=== PATIENT | male | born 1960 | race African-American/Black ===

== ENCOUNTER 2020-01-01 22:02 | Emergency (ER) | payer SELFPAY ==
--- OUTSIDE RECORDS SUMMARY | 2020-01-01 22:05 | XMS REPORT ---
:1960 Author Organization [facility] Address [address] [place] [address] [address] [place] [address] Care Team Providers Name Role Phone Unavailable Unavailable Unavailable Problems This patient has no known problems. Allergies, Adverse Reactions, Alerts This patient has no known allergies or adverse reactions. Medications This patient has no known medications.
[2020-01-01] MEDS ORDERED: FAMOTIDINE 20 MG/2 ML VIAL IV ONE (22:53)
[2020-01-01] MEDS ORDERED: MEPERIDINE HCL 25 MG/0.5 ML ONE (22:53)
[2020-01-01] MEDS ORDERED: MAGNE/ALUM HYDROXD 30 ML UCUP ONE (22:53)
[2020-01-01] MEDS ORDERED: LIDOCAINE VISCOUS 2% SOLN 15 ML UDC ONE (22:53)
[2020-01-01 23:18] LABS: Absolute Lymphocytes (CBC) 2.5 K/uL (0.7-4.9); Basophils % 0.4 % (0-1.3); Hematocrit 42.6 % (39.6-49.0); Lymphocytes % 37.8 % (15.3-44.8); MPV 10.5 fL (7.6-11.3)
[2020-01-01 23:32] LABS: Albumin 3.5 g/dL (3.4-5.0); Bilirubin Direct 0.2 mg/dL (0-0.2); Bilirubin Total 0.5 mg/dL (0.2-1.0); Potassium 3.8 mmol/L (3.5-5.1); Protein, Total 7.4 g/dL (6.4-8.2); Troponin (Emerg Dept Use Only) 0.03 ng/mL (0.0-0.045)
--- NOTE | 2020-01-02 01:02 | ER ---
Nurse's Notes [facility] Name: Rashid Judge Age: 59 yrs Sex: Male : 1960 Arrival Date: 01/01/2020 Time: 22:05 Bed 4 Private MD: Diagnosis: Acute pancreatitis, unspecified;Gastritis, unspecified Presentation: 12/31 22:24 Chief complaint: Patient states: he is having epigastric pain for the last 4 to 5 days bb the pain is getting worse and comes in waves denies vomiting or diarrhea, denies fever. Coronavirus screen: The patient has NOT traveled to [place] in the past 14 days. Proceed with normal triage procedures. Ebola Screen: No symptoms or risks identified at this time. Initial Sepsis Screen: Does the patient meet any 2 criteria? No. Patient's initial sepsis screen is negative. Does the patient have a suspected source of infection? No. Patient's initial sepsis screen is negative. Risk Assessment: Do you want to hurt yourself or someone else? Patient reports no desire to harm self or others. Onset of symptoms was December 2019. 22:24 Method Of Arrival: Ambulatory bb 22:24 Acuity: JULIETTE 3 bb Historical: - Allergies: 22:31 No Known Allergies; bb - Home Meds: 22:31 lisinopril 30 mg Oral tab 1 tab once daily [Active]; glipizide 5 mg Oral tr24 1 tab bb once daily [Active]; - PMHx: 22:31 Hypertension; Diabetes - NIDDM; bb - PSHx: 22:31 None; bb - Immunization history:: Adult Immunizations up to date. - Social history:: Smoking status: Patient reports the use of cigarette tobacco products, smokes one-half pack cigarettes per day, Patient uses alcohol, occasionally. - Family history:: not pertinent. - Hospitalizations: : No recent hospitalization is reported. Screenin:45 Abuse screen: Denies threats or abuse. Denies injuries from another. Nutritional rr5 screening: No deficits noted. Tuberculosis screening: No symptoms or risk factors identified. Fall Risk IV access (20 points). Total Aguila Fall Scale indicates No Risk (0-24 pts). Assessment: 22:40 General: Appears in no apparent distress. uncomfortable, Behavior is calm, cooperative, rr5 appropriate for age. 22:40 Pain: Complains of pain in epigastric area Pain does not radiate. Pain currently is 8 rr5 out of 10 on a pain scale. Quality of pain is described as aching, Pain began gradually, Is intermittent. Neuro: Level of Consciousness is awake, alert, obeys commands, Oriented to person, place, time, situation, Appropriate for age. Cardiovascular: Capillary refill < 3 seconds Patient's skin is warm and dry. Respiratory: Airway is patent Respiratory effort is even, unlabored, Respiratory pattern is regular, symmetrical. GI: Abdomen is round non-distended, Bowel sounds present X 4 quads. Abd is non tender X 4 quads Reports upper abdominal pain, Patient currently denies nausea, vomiting. : No signs and/or symptoms were reported regarding the genitourinary system. EENT: No signs and/or symptoms were reported regarding the EENT system. Derm: Skin is intact, is healthy with good turgor, Skin temperature is warm. Musculoskeletal: Circulation, motion, and sensation intact. Capillary refill < 3 seconds. 23:30 Reassessment: Patient appears in no apparent distress at this time. Patient is alert, rr5 oriented x 3, equal unlabored respirations, skin warm/dry/pink. awaiting for results. Patient states feeling better. Patient states symptoms have improved. 01/01 00:15 Reassessment: Patient appears in no apparent distress at this time. Patient and/or rr5 family updated on plan of care and expected duration. Pain level reassessed. Patient is alert, oriented x 3, equal unlabored respirations, skin warm/dry/pink. Patient states feeling better. 01:30 Reassessment: Patient appears in no apparent distress at this time. Patient is alert, rr5 oriented x 3, equal unlabored respirations, skin warm/dry/pink. discharge instruction given and explained without complaints made. Patient states feeling better. Patient states symptoms have improved. Vital Signs: 12/31 22:24 BP 182 / 105; Pulse 71; Resp 16 S; Temp 98(O); Pulse Ox 98% on R/A; Weight 76.2 kg (R); bb Height 5 ft. 7 in. (170.18 cm) (R); Pain 8/10; 23:35 BP 174 / 110; Pulse 71; Resp 18; Pulse Ox 99% ; Pain 2/10; rr5 01/01 00:49 BP 174 / 112; Pulse 73; Resp 19; Pulse Ox 99% on R/A; rr5 01:25 BP 162 / 95; Pulse 70; Resp 18; Pulse Ox 99% on R/A; rr5 12/31 22:24 Body Mass Index 26.31 (76.20 kg, 170.18 cm) bb ED Course: 12/31 22:05 Patient arrived in ED. ds1 22:30 Triage completed. bb 22:31 Arm band placed on Patient placed in an exam room, on a stretcher, on pulse oximetry. bb Family accompanied patient. 22:33 Wili Webb MD is Attending Physician. rn 22:43 Ric Pineda RN is Primary Nurse. rr5 22:45 Patient has correct armband on for positive identification. Placed in gown. Bed in low rr5 position. Call light in reach. Pulse ox on. NIBP on. 22:46 Radiology exam delayed due to lab results not completed at this time. (BUN/Creatinine). vm2 22:50 EKG done, by ED staff, reviewed by Wili Webb MD. rr5 23:05 Inserted saline lock: 20 gauge in left antecubital area, using aseptic technique. Blood rr5 collected. 01/01 00:12 CT Abd/Pelvis - IV Contrast Only In Process Unspecified. EDMS 01:01 Lennox Franklin MD is Referral Physician. rn 01:30 No provider procedures requiring assistance completed. IV discontinued, intact, rr5 bleeding controlled, No redness/swelling at site. Pressure dressing applied. Administered Medications: 12/31 23:00 Drug: GI Cocktail without - (Maalox Suspension 30 ml, Lidocaine Liquid 2 % 15 rr5 ml) Route: PO; 01/01 00:00 Follow up: Response: No adverse reaction rr5 12/31 23:05 Drug: Pepcid 20 mg Route: IVP; Site: left antecubital; rr5 01/01 00:00 Follow up: Response: No adverse reaction rr5 12/31 23:07 Drug: Demerol 25 mg {Note: rass 0.} Route: IVP; Site: left antecubital; rr5 01/01 00:05 Follow up: Response: No adverse reaction; Marked relief of symptoms; Pain is decreased; rr5 RASS: Alert and Calm (0) Outcome: 01:01 Discharge ordered by . rn 01:30 Discharged to home ambulatory, with family. rr5 01:30 Condition: stable 01:30 Discharge instructions given to patient, Instructed on discharge instructions, follow up and referral plans. medication usage, Demonstrated understanding of instructions, follow-up care, medications, Prescriptions given X 3. 01:33 Patient left the ED. mt Signatures: Dispatcher [employer] EDMO Evon Mccullough ds1 Raysa Del Real RN RN Wili Mcintosh MD MD rn McGuire, Victoria Charmaine Gannon sd Ric Pineda RN RN rr5
--- NOTE | 2020-01-02 01:02 | EDPHYS ---
Physician Documentation [facility] Name: Rashid Judge Age: 59 yrs Sex: Male : 1960 Arrival Date: 01/01/2020 Time: 22:05 Bed 4 Private MD: ED Physician Wili Webb HPI: 01/01 00:18 This 59 yrs old Black Male presents to ER via Ambulatory with complaints of Abdominal rn Pain. 00:18 The patient presents with abdominal pain. Onset: The symptoms/episode began/occurred 4 rn day(s) ago. The symptoms do not radiate. Associated signs and symptoms: none. Pertinent negatives: nausea and vomiting, anorexia, blood in stools, fever, shortness of breath, vomiting blood. The symptoms are described as achy, crampy. Modifying factors: The symptoms are alleviated by nothing, the symptoms are aggravated by food. Severity of pain: At its worst the pain was moderate in the emergency department the pain is unchanged. The patient has not experienced similar symptoms in the past. The patient has not recently seen a physician. Reports upper abd pain, began 4 days ago, intermittent, worse today, worse with food, epigastric region. No blood in stool. Reports seen recently by clinic and told had acid problems, did not fill medication.. Historical: - Allergies: 12/31 22:31 No Known Allergies; bb - Home Meds: 22:31 lisinopril 30 mg Oral tab 1 tab once daily [Active]; glipizide 5 mg Oral tr24 1 tab bb once daily [Active]; - PMHx: 22:31 Hypertension; Diabetes - NIDDM; bb - PSHx: 22:31 None; bb - Immunization history:: Adult Immunizations up to date. - Social history:: Smoking status: Patient reports the use of cigarette tobacco products, smokes one-half pack cigarettes per day, Patient uses alcohol, occasionally. - Family history:: not pertinent. - Hospitalizations: : No recent hospitalization is reported. ROS: 01/01 00:18 Constitutional: Negative for fever, chills, and weight loss, Eyes: Negative for injury, rn pain, redness, and discharge, Neck: Negative for injury, pain, and swelling, Cardiovascular: Negative for chest pain, palpitations, and edema, Respiratory: Negative for shortness of breath, cough, wheezing, and pleuritic chest pain, Abdomen/GI: Negative for nausea, vomiting, diarrhea, and constipation, Back: Negative for injury and pain, MS/Extremity: Negative for injury and deformity, Skin: Negative for injury, rash, and discoloration, Neuro: Negative for headache, weakness, numbness, tingling, and seizure. Exam: 00:18 Constitutional: This is a well developed, well nourished patient who is awake, alert, rn appears in pain Head/Face: Normocephalic, atraumatic. Eyes: Pupils equal round and reactive to light, extra-ocular motions intact. Lids and lashes normal. Conjunctiva and sclera are non-icteric and not injected. Cornea within normal limits. Periorbital areas with no swelling, redness, or edema. Cardiovascular: Regular rate and rhythm. No pulse deficits. Respiratory: Lungs have equal breath sounds bilaterally, clear to auscultation. No increased work of breathing, no retractions or nasal flaring. Abdomen/GI: soft, + epigastric tenderness, no rebound, neg cardona MS/ Extremity: Pulses equal, no cyanosis. Neurovascular intact. Full, normal range of motion. Equal circumference. Neuro: Awake and alert, GCS 15, oriented to person, place, time, and situation. Cranial nerves II-XII grossly intact. Motor strength 5/5 in all extremities. Sensory grossly intact. Cerebellar exam normal. Normal gait. Vital Signs: 12/31 22:24 BP 182 / 105; Pulse 71; Resp 16 S; Temp 98(O); Pulse Ox 98% on R/A; Weight 76.2 kg (R); bb Height 5 ft. 7 in. (170.18 cm) (R); Pain 8/10; 23:35 BP 174 / 110; Pulse 71; Resp 18; Pulse Ox 99% ; Pain 2/10; rr5 01/01 00:49 BP 174 / 112; Pulse 73; Resp 19; Pulse Ox 99% on R/A; rr5 01:25 BP 162 / 95; Pulse 70; Resp 18; Pulse Ox 99% on R/A; rr5 12/31 22:24 Body Mass Index 26.31 (76.20 kg, 170.18 cm) bb MDM: 12/31 22:34 Patient medically screened. rn 01/01 00:58 Differential diagnosis: cholecystitis, Cholelithiasis, gastritis, gastroesophageal rn reflux disease, Hepatitis, non-specific abd pain, pancreatitis, Peptic Ulcer Disease. Data reviewed: vital signs, nurses notes, lab test result(s), EKG, radiologic studies, CT scan, and as a result, I will admit patient. Counseling: I had a detailed discussion with the patient and/or guardian regarding: the historical points, exam findings, and any diagnostic results supporting the discharge/admit diagnosis, lab results, radiology results, the need for further work-up and treatment in the hospital. Response to treatment: the patient's symptoms have markedly improved after treatment, and as a result, I will admit patient. Refusal of service: The patient/guardian displays adequate decision making capability and despite a detailed discussion of alternatives, benefits, risks, and consequences refuses: Admission to the hospital for further work-up and treatment. ED course: Pt states absolutely cannot stay in hospital. Recommend inpatient care given first episode of pancreatitis, and gastritis, although mild, patient states cant afford not to work. Prefers to go home and states will return if worsens. Recommend liquid diet and will dc home with pain meds. . 12/31 22:43 Order name: Basic Metabolic Panel rn 12/31 22:43 Order name: CBC with Diff; Complete Time: 00:45 rn 12/31 22:43 Order name: Creatinine for Radiology; Complete Time: 00:45 rn 12/31 22:43 Order name: Hepatic Function; Complete Time: 00:45 rn 12/31 22:43 Order name: Lipase; Complete Time: 00:45 rn 12/31 22:43 Order name: Troponin (emerg Dept Use Only); Complete Time: 00:45 rn 12/31 22:43 Order name: IV Saline Lock; Complete Time: 23:13 rn 12/31 22:43 Order name: Labs collected and sent; Complete Time: 23:13 rn 12/31 22:43 Order name: CT Abd/Pelvis - IV Contrast Only rn 12/31 22:44 Order name: Basic Metabolic Panel; Complete Time: 00:45 EDMS 12/31 22:43 Order name: EKG - Nurse/Tech; Complete Time: 23:13 rn Administered Medications: 12/31 23:00 Drug: GI Cocktail without - (Maalox Suspension 30 ml, Lidocaine Liquid 2 % 15 rr5 ml) Route: PO; 01/01 00:00 Follow up: Response: No adverse reaction rr5 12/31 23:05 Drug: Pepcid 20 mg Route: IVP; Site: left antecubital; rr5 01/01 00:00 Follow up: Response: No adverse reaction rr5 12/31 23:07 Drug: Demerol 25 mg {Note: rass 0.} Route: IVP; Site: left antecubital; rr5 01/01 00:05 Follow up: Response: No adverse reaction; Marked relief of symptoms; Pain is decreased; rr5 RASS: Alert and Calm (0) Disposition: 01/02/20 01:01 Discharged to Home. Impression: Acute pancreatitis, unspecified, Gastritis, unspecified. - Condition is Stable. - Discharge Instructions: Gastritis, Adult, Acute Pancreatitis. - Prescriptions for Zofran ODT 4 mg Oral tablet,disintegrating - place 1 tablet by TRANSLINGUAL route every 8 hours As needed; 20 tablet. Protonix 40 mg Oral Tablet - take 1 tablet by ORAL route once daily; 30 tablet. Tylenol- Codeine #3 300-30 mg Oral Tablet - take 1 tablet by ORAL route every 6 hours As needed; 20 tablet. - Medication Reconciliation Form, Thank You Letter, Antibiotic Education, Prescription Opioid Use form. - Follow up: Lennox Franklin MD; When: 2 - 3 days; Reason: Recheck today's complaints, Re-evaluation by your physician. - Problem is new. - Symptoms have improved. Signatures: Dispatcher [employer] EDRaysa Tsang RN RN bb Nieto, Roman, MD MD rn Thompson, Moriah mt Roque, Raymond, RN RN rr5 Corrections: (The following items were deleted from the chart) 01:33 01:01 01/02/2020 01:01 Discharged to Home. Impression: Acute pancreatitis, unspecified; mt Gastritis, unspecified. Condition is Stable. Forms are Medication Reconciliation Form, Thank You Letter, Antibiotic Education, Prescription Opioid Use. Follow up: Lennox Franklin; When: 2 - 3 days; Reason: Recheck today's complaints, Re-evaluation by your physician. Problem is new. Symptoms have improved. rn
[2020-01-02 03:55] VITALS: TEMP 98
[2020-01-02 03:57] VITALS: O2SAT 99
[2020-01-02 03:58] VITALS: BP 174/112
--- NOTE | 2020-01-02 11:42 | RAD REPORT ---
EXAM DESCRIPTION: CT - Abdomen Pelvis W Contrast - 01/02/2020 5:26 am CLINICAL HISTORY: 59 years Male ABD PAIN COMPARISON: None. TECHNIQUE: Contiguous axial images obtained through the abdomen and pelvis following IV contrast. Re formatted images obtained. This exam was performed according to our department optimization program which includes automated exp osure control, adjustment of the mA and/or kv according to patient size and/or use of iterative recon struction technique. FINDINGS: Mild atelectasis/scarring in the lower lungs. The liver appears unremarkable. The spleen appears unremarkable. There is mild stranding in the fatty tissues around the pancreas consistent with pancreatitis. There is normal pancreatic enhancement and the splenic and portal veins are patent. No adrenal masses. There is a left renal cyst. No hydronephrosis. There is wall thickening in the gallbladder which is nonspecific. If there is clinical concern for the possibility of cholecystitis, sonography or nuclear medicine imaging could be obtained to better evaluate. No aneurysmal dilatation of the aorta. There is wall thickening in the distal stomach and proximal duodenum likely from the adjacent changes from pancreatitis. Clinical correlation is also recommended to exclude gastritis or ulcer disease. N o bowel obstruction. There is an appendicolith within the appendix. No evidence for appendicitis. No significant free pelvic fluid. Tiny fat-containing umbilical hernia. Small fat-containing inguinal hernias. Degenerative changes in the spine. There are bridging osteophytes at the SI joints. IMPRESSION: There are findings consistent with pancreatitis. Clinical and laboratory correlation is also recommended. There is wall thickening in the distal stomach and proximal duodenum likely from the adjacent pancrea titis. Clinical correlation is also recommended to exclude gastritis or ulcer disease. There is wall thickening in the gallbladder which is nonspecific but may be secondary to changes from pancreatitis. If there is clinical concern for the possibility of cholecystitis, sonography or nu clear medicine imaging could be obtained to better evaluate. Other findings as above. Electronically signed by: Jasen Vaz MD 01/02/2020 12:25 AM [facility]AK[facility] Due to temporary technical issues with the PACS/Fluency reporting system, reports are being signed by the in house radiologist as a courtesy to ensure prompt reporting. The interpreting radiologist is f ully responsible for the content of the report.
== END 2020-01-02 01:33 | disposition home or self-care (01) ==
LOC: ER 22:02
DX: K85.90 Acute pancreatitis without necrosis or infection, unspecified (principal); K29.70 Gastritis, unspecified, without bleeding; F17.210 Nicotine dependence, cigarettes, uncomplicated; I10 Essential (primary) hypertension; E11.9 Type 2 diabetes mellitus without complications
CPT/HCPCS: 36415; 74177; 80048; 80076; 83690; 84484; 85025; 96374; 96375; 99284; J2175; Q9967

== ENCOUNTER 2021-06-26 06:47 | Day surgery (SDC) | payer OTHER ==
[2021-06-26] MEDS ORDERED: NA CHLORIDE 0.9% 500 ML ONE ×2 (07:52→08:42)
[2021-06-26] MEDS ORDERED: Phenylephrine HCl 10 MG/ML 1 ML VIAL ONE ×2 (07:55→08:09)
[2021-06-26] MEDS ORDERED: propofoL 200 MG/20 ML VIAL IV ONE ×2 (08:09)
[2021-06-26] MEDS ORDERED: LIDOCAINE 4% TOP SOLUTION ONE (08:10)
[2021-06-26] MEDS ORDERED: GLYCOPYRROLATE 0.2 MG/ML SYR ONE (08:10)
[2021-06-26] MEDS ORDERED: LIDOCAINE 1% MPF 30 ML VIAL ONE ×2 (08:10→08:16)
[2021-06-26] MEDS ORDERED: LIDOCAINE VISCOUS 2% SOLN 15 ML UDC ONE (08:16)
--- NOTE | 2021-06-26 08:50 | P.OP ---
Date of Service: 06/26/21 (Bronchoscopy with left upper lobe and a bronchial biopsies and BAL and why a brushing) Findings and Operative Technique Patient is 60 years of age evaluated in my clinic for a large left upper lobe lung mass presumed another primary cancer he has already been treated for prostatic cancer After obtaining informed consent from the patient he was premedicated by anesthesia Findings normal right-sided lung anatomy in normal oxana the left upper lobe bronchus was most 70% occluded multiple biopsies were done for S of the anatomy in the left lung looked fairly normal patient tolerated the procedure very well did not experience any hemodynamic abnormalities or hypoxemia
[2021-06-26 09:25] VITALS: TEMP 96.8; O2SAT 100
[2021-06-26 09:29] VITALS: BP 103/74
--- NOTE | 2021-06-26 10:02 | RAD REPORT ---
EXAM DESCRIPTION: RAD - FLUORO-GUIDE FOR BRONCH UPT1HR - 06/26/2021 9:53 am CLINICAL HISTORY: LEFT LUNG COMPARISON: No comparisons FINDINGS: Fluoroscopy time 2 minutes and 32 seconds.
--- NOTE | 2021-06-26 10:21 | RAD REPORT ---
EXAM DESCRIPTION: RAD - Chest Single View - 06/26/2021 10:08 am CLINICAL HISTORY: R/O PNEUMOTHORAX AFTER BRONCHOSCOPY Chest pain. COMPARISON: FLUORO-GUIDE FOR BRONCH UPT1HR dated 06/26/2021 FINDINGS: Portable technique limits examination quality. Exam was performed at expiration resulting in vascular crowding. No measurable pneumothorax is seen. Heart size is upper limit of normal. IMPRESSION: No postprocedure pneumothorax seen.
== END 2021-06-26 10:50 | disposition home or self-care (01) ==
LOC: OR 06:47
PROVIDERS: ATTEND Internal Medicine Sleep Medicine
PROC: 0BD88ZX Extraction of Left Upper Lobe Bronchus, Via Natural or Artificial Opening Endoscopic, Diagnostic (ICD-10-PCS; 2021-06-26)
PROC: 0B9G8ZX Drainage of Left Upper Lung Lobe, Via Natural or Artificial Opening Endoscopic, Diagnostic (ICD-10-PCS; principal; 2021-06-26 08:00)
DX: R91.8 Other nonspecific abnormal finding of lung field (principal); F17.210 Nicotine dependence, cigarettes, uncomplicated; I10 Essential (primary) hypertension; Z85.46 Personal history of malignant neoplasm of prostate; E11.9 Type 2 diabetes mellitus without complications; Z20.822 Contact with and (suspected) exposure to COVID-19
CPT/HCPCS: 31624; 31625; 88108 ×2; 82947; 88305 ×2; 87015; 87206; 87116; 87102; 71045; 76000; U0002; J2704 ×2; J2370; J7040

== ENCOUNTER 2021-08-29 17:31 | Emergency (ER) | payer OTHER ==
[2021-08-29] MEDS ORDERED: PROMETHAZINE INJ 25 MG/ML AMP ONE (18:23)
[2021-08-29] MEDS ORDERED: NA CHLORIDE 0.9% 1,000 ML ONE (18:23)
[2021-08-29 18:24] LABS: Urine Blood Negative (Negative); Urine Glucose 2+ (Negative); Urine Protein Negative (Negative)
[2021-08-29 18:31] LABS: BUN Blood Urea Nitrogen 19 mg/dL (7-18); Bicarbonate 26 mmol/L (21-32); Glucose Level 371 mg/dL (74-106); Potassium 4.8 mmol/L (3.5-5.1); Sodium Level 137 mmol/L (136-145)
[2021-08-29 18:40] LABS: Absolute Lymphocytes (CBC) 1.6 K/uL (0.7-4.9); Basophils % 0.2 % (0-1.3); Hematocrit 34.7 % (39.6-49.0); Lymphocytes % 13.6 % (15.3-44.8); MPV 8.7 fL (7.6-11.3); RBC Red Blood Cell Count 4.03 M/uL (4.33-5.43)
[2021-08-29 19:58] LABS: Blood Morphology Comment NOT SEEN (NOT SEEN); Platelet Estimate ADEQ
--- NOTE | 2021-08-29 20:43 | ER ---
Nurse's Notes [facility] Name: Rashid Judge Age: 61 yrs Sex: Male : 1960 Arrival Date: 08/29/2021 Time: 17:34 Bed 18 Private MD: Diagnosis: Nausea with vomiting, unspecified;Hyperglycemia, unspecified Presentation: 08/29 17:42 Chief complaint: Patient states: Blood sugar 449 earlier today. Nausea and diarrhea for ll1 1 week. Stage 4 prostate CA, finished radiation. 3rd round of chemo scheduled for next week. Coronavirus screen: Vaccine status: Patient reports receiving the 2nd dose of the covid vaccine. Client denies travel out of the [place] in the last 14 days. At this time, the client does not indicate any symptoms associated with coronavirus-19. Ebola Screen: Patient denies travel to an Ebola-affected area in the 21 days before illness onset. Initial Sepsis Screen: Does the patient meet any 2 criteria? HR > 90 bpm. No. Patient's initial sepsis screen is negative. Does the patient have a suspected source of infection? No. Patient's initial sepsis screen is negative. Risk Assessment: Do you want to hurt yourself or someone else? Patient reports no desire to harm self or others. Onset of symptoms was August 22, 2021. 17:42 Method Of Arrival: Ambulatory ll1 17:42 Acuity: JULIETTE 3 ll1 Historical: - Allergies: 17:44 No Known Allergies; ll1 - PMHx: 17:44 Diabetes - NIDDM; Hypertension; prostate CA; ll1 - Immunization history:: Client reports receiving the 2nd dose of the Covid vaccine. - Social history:: Smoking status: Patient reports the use of cigarette tobacco products, 1/5 PPD. Screenin:48 Abuse screen: Denies threats or abuse. Tuberculosis screening: No symptoms or risk ll1 factors identified. 17:50 Nutritional screening: Has had N/V for 3 or more days. Fall Risk Secondary diagnosis jw6 (15 points) prostate cancer. IV access (20 points). Assessment: 17:50 General: Appears uncomfortable, Behavior is cooperative. Pain: Denies pain. Neuro: No jw6 deficits noted. Cardiovascular: No deficits noted. Respiratory: No deficits noted. GI: No deficits noted. : No deficits noted. :. EENT: No deficits noted. Derm: No deficits noted. Musculoskeletal: No deficits noted. 20:00 Reassessment: Patient appears in no apparent distress at this time. Eating sandwich cc4 with no n/v; watching TV; reports being "hungry"; IV NS infusion complete to saline lock right AC. General: Appears in no apparent distress. Behavior is calm, cooperative. Pain: Denies pain. Neuro: No deficits noted. Level of Consciousness is awake, alert, obeys commands, Oriented to person, place, time, situation. Respiratory: No deficits noted. Airway is patent. 20:00 Reassessment: eating sandwich with no N/V. cc4 20:09 Reassessment: Patient appears in no apparent distress at this time. Accucheck glucose cc4 245 mg/dl. Vital Signs: 17:42 BP 130 / 91; Pulse 109; Resp 17; Temp 97.0; Pulse Ox 100% ; Weight 65.32 kg; Height 5 ll1 ft. 6 in. (167.64 cm); Pain 0/10; 20:00 BP 137 / 95; Pulse 97; Resp 18; Temp 98.1; Pulse Ox 96% on R/A; cc4 20:54 BP 131 / 86; Pulse 95; Resp 18; Pulse Ox 100% on R/A; oe 17:42 Body Mass Index 23.24 (65.32 kg, 167.64 cm) ll1 ED Course: 17:34 Patient arrived in ED. as 17:44 Triage completed. ll1 17:45 [facility]C [facility]. kb 17:45 Krystle Patel MD is Attending Physician. kb 17:45 Arm band placed on Patient placed in an exam room, on a stretcher. ll1 17:49 Roz Hong is Primary Nurse. jw6 17:50 Patient has correct armband on for positive identification. Bed in low position. Call jw6 light in reach. Side rails up X 1. 17:50 No provider procedures requiring assistance completed. jw6 18:06 Acetone, Serum Sent. jw6 18:06 Basic Metabolic Panel Sent. jw6 18:06 CBC with Diff Sent. jw6 18:09 Inserted saline lock: 20 gauge in right antecubital area, using aseptic technique. gd Blood collected. 18:09 Acetone Level Sent. gd 18:09 Basic Metabolic Panel Sent. gd 18:09 CBC with Automated Diff Sent. gd 18:27 Urine collected: clean catch specimen, raven colored. gd 20:54 IV discontinued, intact, bleeding controlled, No redness/swelling at site. Pressure cc4 dressing applied. Administered Medications: 18:13 Drug: NS 0.9% 1000 ml Route: IV; Rate: 1000 ml; Site: right antecubital; jw6 20:54 Follow up: IV Status: Completed infusion; IV Intake: 1000ml cc4 18:13 Drug: Phenergan (promethazine) 6.25 mg Route: IVP; Site: right antecubital; jw6 18:13 Follow up: Response: No adverse reaction jw6 Intake: 20:54 IV: 1000ml; Total: 1000ml. cc4 Outcome: 20:43 Discharge ordered by . kb 20:54 Discharged to home ambulatory. cc4 20:54 Condition: improved 20:54 Discharge instructions given to patient. 21:13 Patient left the ED. oe Signatures: Bethany Tadeo, ICER MACHINE-C ICER MACHINE-Zainab Lyle Orlando oe Philly Arce, RN RN ll1 Virginia Diaz, MAYRA RN cc4 Chente Dobbs Jessica jw6 Corrections: (The following items were deleted from the chart) 17:47 17:42 Chief complaint: Patient states: Blood sugar 449. Nausea and diarrhhea. Stage 4 ll1 prostate CA, finished radiation. 3rd round of chemo next week. ll1
--- NOTE | 2021-08-29 20:43 | EDPHYS ---
Physician Documentation [facility] Name: Rashid Judge Age: 61 yrs Sex: Male : 1960 Arrival Date: 08/29/2021 Time: 17:34 Bed 18 Private MD: ED Physician Krystle Patel HPI: 08/29 20:53 This 61 yrs old Black Male presents to ER via Ambulatory with complaints of High Blood kb Sugar. 20:53 The patient or guardian reports hyperglycemia, that was potentially precipitated by no kb particular event. Onset: The symptoms/episode began/occurred 3 day(s) ago. Associated signs and symptoms: Pertinent positives: diarrhea, nausea, vomiting. Current symptoms: In the emergency department the patient's symptoms are unchanged from the initial presentation. The patient has experienced similar episodes in the past, a few times. The patient has not recently seen a physician. Pt states he has had n/v/d for a few days due to medication side effects. States he has been taking his metformin but unable to keep it down so his blood sugar has been high for 3 days. . Historical: - Allergies: 17:44 No Known Allergies; ll1 - PMHx: 17:44 Diabetes - NIDDM; Hypertension; prostate CA; ll1 - Immunization history:: Client reports receiving the 2nd dose of the Covid vaccine. - Social history:: Smoking status: Patient reports the use of cigarette tobacco products, 1/5 PPD. ROS: 20:53 Constitutional: Negative for fever, chills, and weight loss. kb 20:53 Abdomen/GI: Positive for nausea, vomiting, and diarrhea, Negative for abdominal pain. 20:53 Endocrine: Positive for hyperglycemia. 20:53 All other systems are negative. Exam: 20:53 Constitutional: This is a well developed, well nourished patient who is awake, alert, kb and in no acute distress. Head/Face: Normocephalic, atraumatic. ENT: Moist Mucous membranes Cardiovascular: Regular rate and rhythm with a normal S1 and S2. No gallops, murmurs, or rubs. No pulse deficits. Respiratory: Respirations even and unlabored. No increased work of breathing, no retractions or nasal flaring. Abdomen/GI: Soft, non-tender. No distention Skin: Warm, dry with normal turgor. Normal color. MS/ Extremity: Pulses equal, no cyanosis. Neurovascular intact. Full, normal range of motion. Neuro: Awake and alert, GCS 15, oriented to person, place, time, and situation. Moves all extremities. Normal gait. Psych: Awake, alert, with orientation to person, place and time. Behavior, mood, and affect are within normal limits. Vital Signs: 17:42 BP 130 / 91; Pulse 109; Resp 17; Temp 97.0; Pulse Ox 100% ; Weight 65.32 kg; Height 5 ll1 ft. 6 in. (167.64 cm); Pain 0/10; 20:00 BP 137 / 95; Pulse 97; Resp 18; Temp 98.1; Pulse Ox 96% on R/A; cc4 20:54 BP 131 / 86; Pulse 95; Resp 18; Pulse Ox 100% on R/A; oe 17:42 Body Mass Index 23.24 (65.32 kg, 167.64 cm) ll1 MDM: 17:45 Patient medically screened. kb 20:53 Data reviewed: vital signs, nurses notes. Data interpreted: Pulse oximetry: on room air kb is 96 %. Interpretation: normal. Counseling: I had a detailed discussion with the patient and/or guardian regarding: the historical points, exam findings, and any diagnostic results supporting the discharge/admit diagnosis, lab results, the need for outpatient follow up, a family practitioner, to return to the emergency department if symptoms worsen or persist or if there are any questions or concerns that arise at home. 20:54 ED course: Pt tolerating po intake. Ate a sandwich and drank water. kb 08/29 17:46 Order name: CBC with Diff kb 08/29 17:46 Order name: Basic Metabolic Panel kb 08/29 17:46 Order name: Acetone, Serum kb 08/29 17:46 Order name: CBC with Automated Diff; Complete Time: 19:59 EDMS 08/29 17:46 Order name: Basic Metabolic Panel; Complete Time: 18:33 EDMS 08/29 17:46 Order name: Acetone Level; Complete Time: 18:33 EDMS 08/29 17:46 Order name: IV Start; Complete Time: 18:06 kb 08/29 17:46 Order name: Urine Dipstick-Ancillary (obtain specimen); Complete Time: 18:20 kb 08/29 18:24 Order name: Urine Dipstick-Ancillary; Complete Time: 18:25 EDMS 08/29 19:58 Order name: Manual Differential; Complete Time: 19:59 EDMS 08/29 20:00 Order name: Blood Glucose Level; Complete Time: 20:10 kb 08/29 20:22 Order name: Glucose, Ancillary Testing; Complete Time: 20:37 EDMS Administered Medications: 18:13 Drug: NS 0.9% 1000 ml Route: IV; Rate: 1000 ml; Site: right antecubital; jw6 20:54 Follow up: IV Status: Completed infusion; IV Intake: 1000ml cc4 18:13 Drug: Phenergan (promethazine) 6.25 mg Route: IVP; Site: right antecubital; jw6 18:13 Follow up: Response: No adverse reaction jw6 Disposition Summary: 08/29/21 20:43 Discharge Ordered Location: Home kb Condition: Stable kb Diagnosis - Nausea with vomiting, unspecified kb - Hyperglycemia, unspecified kb Followup: kb - With: Emergency Department - When: As needed - Reason: Worsening of condition Followup: kb - With: Private Physician - When: 2 - 3 days - Reason: Recheck today's complaints, Continuance of care, Re-evaluation by your physician Discharge Instructions: - Discharge Summary Sheet kb - Nausea and Vomiting, Adult, [id number] kb - Hyperglycemia, [id number] kb Forms: - Medication Reconciliation Form kb - Thank You Letter kb - Antibiotic Education kb - Prescription Opioid Use kb Prescriptions: - promethazine 25 mg Oral Tablet - take 1 tablet by ORAL route every 8 hours As needed; 20 tablet; Refills: 0, kb Product Selection Permitted Addendum: 09/01/2021 23:00 Co-signature as Attending Physician, Krystle Patel MD. m a2 23:01 PA/FISH TRAPPER's history reviewed, patient interviewed, and examined. I agree with assessment m a2 and care plan and confirm the diagnosis (es) above. Signatures: Dispatcher [employer] EDMS Bethany Tadeo, DRE-C JOURNEYMAN PLUMBER-Krystle Salvador MD MD ma2 Philly Arce, RN RN ll1 Roz Hong6 Virginia Diaz RN cc4
[2021-08-29 21:19] VITALS: TEMP 98.1
[2021-08-29 21:20] VITALS: BP 131/86; O2SAT 100
== END 2021-08-29 21:13 | disposition home or self-care (01) ==
LOC: ER 17:31
DX: E11.65 Type 2 diabetes mellitus with hyperglycemia (principal); I10 Essential (primary) hypertension; Z72.0 Tobacco use
CPT/HCPCS: 96361; 85025; 80048; 36415; 82010; 82947; 81003; 96374; 99283; J2550; J7030

== ENCOUNTER 2021-09-07 14:03 | Observation (INO) | payer OTHER ==
[2021-09-07 14:56] LABS: Urine Blood Trace-lysed (Negative); Urine Glucose 3+ (Negative); Urine Protein Negative (Negative); Urine Specific Gravity <=1.005 (1.005-1.030)
[2021-09-07] MEDS ORDERED: HYDROMORPHONE HCL 1 MG/ML INJ ONE (15:22)
[2021-09-07] MEDS ORDERED: ONDANSETRON 4 MG/2 ML VIAL ONE (15:22)
[2021-09-07] MEDS ORDERED: NA CHLORIDE 0.9% 1,000 ML ONE (15:23)
[2021-09-07] MEDS ORDERED: INSULIN -REGULAR HUMAN 50 UNIT/0.5 ML ML ONE (15:23)
[2021-09-07] MEDS ORDERED: LIDOCAINE VISCOUS 2% SOLN 15 ML UDC ONE (15:23)
[2021-09-07 16:03] LABS: Absolute Lymphocytes (CBC) 1.1 K/uL (0.7-4.9); Basophils % 0.5 % (0-1.3); Hematocrit 39.6 % (39.6-49.0); Lymphocytes % 13.8 % (15.3-44.8); MPV 9.2 fL (7.6-11.3); Protime INR 0.99
--- NOTE | 2021-09-07 16:04 | RAD REPORT ---
[facility]30 [facility] CLINICAL HISTORY: Chest pain COMPARISON: June 2021 FINDINGS: Mediastinal mass has markedly diminished in size. Mild left upper lobe opacities probably pneumonitis. Right lung appears clear. Heart is normal size. Sclerotic bony lesions are again demonstrated
[2021-09-07 16:06] LABS: ALT/SGPT 32 U/L (12-78); AST/SGOT 21 U/L (15-37); Albumin 3.4 g/dL (3.4-5.0); BUN Blood Urea Nitrogen 17 mg/dL (7-18); Bicarbonate 25 mmol/L (21-32); Bilirubin Direct 0.2 mg/dL (0-0.2); Magnesium 2.5 mg/dL (1.8-2.4); Potassium 4.5 mmol/L (3.5-5.1); Sodium Level 133 mmol/L (136-145)
[2021-09-07 16:09] LABS: Glucose Level 484 mg/dL (74-106)
[2021-09-07 16:21] LABS: Alkaline Phosphatase 1346 U/L (45-117); Bilirubin Total 0.5 mg/dL (0.2-1.0); NT PRO-BNP 144 pg/mL (<125); Protein, Total 7.4 g/dL (6.4-8.2); Troponin (Emerg Dept Use Only) < 0.02 ng/mL (0.0-0.045)
--- NOTE | 2021-09-07 16:33 | EDPHYS ---
Physician Documentation [facility] Name: Rashid Judge Age: 61 yrs Sex: Male : 1960 Arrival Date: 09/07/2021 Time: 14:05 Bed 6 Private MD: ED Physician Katrin Hollingsworth HPI: 09/07 15:41 This 61 yrs old Black Male presents to ER via Ambulatory with complaints of Nausea, sp3 Diarrhea, Throat Pain. 15:41 61-year-old male history of diabetes, hypertension, prostate cancer stage IV currently sp3 on his third round of chemotherapy presents to the ER for dehydration, diarrhea, mouth sores, and generalized weakness. Patient denies headache, chest pain, fever, urinary symptoms, abdominal pain, vomiting, syncope, focal neuro deficit, any other symptoms. He just finished his chemotherapy 2 days ago and has been deteriorating since. Patient is tearful and states that he just feels "horrible".. Historical: - Allergies: 14:48 No Known Allergies; tw2 - Home Meds: 14:48 glipizide 5 mg Oral tr24 1 tab once daily [Active]; lisinopril 30 mg Oral tab 1 tab tw2 once daily [Active]; - PMHx: 14:48 PROSTATE CA; Hypertension; Diabetes - NIDDM; tw2 - Immunization history:: Client reports receiving the 2nd dose of the Covid vaccine. - Social history:: Smoking status: Patient reports the use of cigarette tobacco products, denies chronic smoking, but will smoke occasionally. ROS: 15:42 Eyes: Negative for injury, pain, redness, and discharge, Neck: Negative for injury, sp3 pain, and swelling, Cardiovascular: Negative for chest pain, palpitations, and edema, Respiratory: Negative for shortness of breath, cough, wheezing, and pleuritic chest pain, Back: Negative for injury and pain, Skin: Negative for injury, rash, and discoloration, Neuro: Negative for headache, weakness, numbness, tingling, and seizure. 15:42 Constitutional: Positive for Patient feels generally weak, has mouth sores, and has had diarrhea as mentioned in the HPI. Remainder of ROS negative.. 15:42 All other systems are negative. Exam: 15:43 Head/Face: Normocephalic, atraumatic. Eyes: Pupils equal round and reactive to light, sp3 extra-ocular motions intact. Lids and lashes normal. Conjunctiva and sclera are non-icteric and not injected. Cornea within normal limits. Periorbital areas with no swelling, redness, or edema. Neck: Trachea midline, no thyromegaly or masses palpated, and no cervical lymphadenopathy. Supple, full range of motion without nuchal rigidity, or vertebral point tenderness. No Meningismus. Chest/axilla: Normal chest wall appearance and motion. Nontender with no deformity. No lesions are appreciated. Cardiovascular: Regular rate and rhythm with a normal S1 and S2. No gallops, murmurs, or rubs. Normal PMI, no JVD. No pulse deficits. Respiratory: Lungs have equal breath sounds bilaterally, clear to auscultation and percussion. No rales, rhonchi or wheezes noted. No increased work of breathing, no retractions or nasal flaring. Back: No spinal tenderness. No costovertebral tenderness. Full range of motion. Skin: Warm, dry with normal turgor. Normal color with no rashes, no lesions, and no evidence of cellulitis. MS/ Extremity: Pulses equal, no cyanosis. Neurovascular intact. Full, normal range of motion. Neuro: Awake and alert, GCS 15, oriented to person, place, time, and situation. Cranial nerves II-XII grossly intact. Motor strength 5/5 in all extremities. Sensory grossly intact. Cerebellar exam normal. Normal gait. Psych: Awake, alert, with orientation to person, place and time. Behavior, mood, and affect are within normal limits. 15:43 Constitutional: The patient appears Patient is mildly cachectic and underweight but in no acute distress. 15:43 ENT: Patient has positive vesicular sores in his mouth that are mildly erythematous.. 15:43 Abdomen/GI: Abdomen soft, nontender nondistended with no peritoneal signs. Patient does complain of "abdominal cramping" when palpated.. 15:47 ECG was reviewed by the Attending Physician. sp3 Vital Signs: 14:45 BP 140 / 115; Pulse 121; Resp 18; Temp 98.7(O); Pulse Ox 100% on R/A; Weight 63.5 kg tw2 (R); Height 5 ft. 6 in. (167.64 cm); Pain 9/10; 15:13 BP 144 / 96; Pulse 104; Resp 19 S; Pulse Ox 97% on R/A; jd3 17:38 Pulse 96; Resp 19 S; Pulse Ox 100% on R/A; jd3 18:41 BP 155 / 105; Pulse 95; Resp 19 S; Pulse Ox 99% on R/A; jd3 20:00 BP 135 / 78; Pulse 101; Resp 17; Pulse Ox 98% ; Pain 6/10; dc2 22:00 BP 141 / 86; Pulse 95; Resp 17; Pulse Ox 99% ; Pain 6/10; dc2 14:45 Body Mass Index 22.60 (63.50 kg, 167.64 cm) tw2 MDM: 15:14 Patient medically screened. sp3 15:45 Data reviewed: vital signs, nurses notes. ED course: 61-year-old male with stage IV sp3 prostate cancer and other medical problems now dehydrated and possible DKA. Fingerstick blood glucose bedside demonstrates "high". Will treat with normal saline, Dilaudid, Zofran, insulin IV 10 units, and viscous lidocaine for his mouth. Disposition will be based on laboratory values and work-up for likely admission.. 16:31 ED course: Patient has no anion gap but is still clinically dehydrated and has sp3 hyperglycemia. We will place him 23 observation under hospitalist service for further supportive care.. 09/07 14:56 Order name: Urine Dipstick-Ancillary; Complete Time: 15:57 EDMS 09/07 15:16 Order name: Basic Metabolic Panel 3 09/07 15:16 Order name: CBC with Diff; Complete Time: 16:15 3 09/07 15:16 Order name: LFT's 3 09/07 15:16 Order name: Magnesium sp3 09/07 15:16 Order name: NT PRO-BNP 3 09/07 15:16 Order name: PT-INR; Complete Time: 16:15 3 09/07 15:16 Order name: Troponin (emerg Dept Use Only) 3 09/07 15:25 Order name: Glucose, Ancillary Testing; Complete Time: 15:57 EDMS 09/07 16:43 Order name: SARS-COV-2 RT PCR (Document "Date of Onset" if Symptomatic) 4 09/07 16:51 Order name: Glucose, Ancillary Testing EDMS 09/07 20:32 Order name: Glucose, Ancillary Testing EDMS 09/07 20:42 Order name: CBC with Automated Diff EDMS 09/07 20:42 Order name: CBC with Automated Diff EDMS 09/07 15:16 Order name: XRAY Chest (1 view); Complete Time: 16:15 sp3 09/07 15:16 Order name: EKG; Complete Time: 15:17 sp3 09/07 15:16 Order name: Cardiac monitoring; Complete Time: 15:38 sp3 09/07 15:16 Order name: EKG - Nurse/Tech; Complete Time: 15:43 sp3 09/07 20:42 Order name: CONS Physician Consult; Complete Time: 22:22 EDMS 09/07 20:42 Order name: 60g Consistent Carbohydrate (ADA 1800/1999); Complete Time: 22:22 EDMS 09/07 20:42 Order name: Comprehensive Metabolic Panel EDMS 09/07 20:42 Order name: Comprehensive Metabolic Panel EDMS 09/07 20:42 Order name: Hemoglobin A1c EDMS 09/07 20:42 Order name: Hemoglobin A1c EDMS 09/07 15:16 Order name: IV Saline Lock; Complete Time: 15:38 sp3 09/07 15:16 Order name: Labs collected and sent; Complete Time: 15:38 sp3 09/07 15:16 Order name: O2 Per Protocol; Complete Time: 15:38 sp3 09/07 15:16 Order name: O2 Sat Monitoring; Complete Time: 15:37 sp3 Administered Medications: 15:35 Drug: Dilaudid (HYDROmorphone) 1 mg Route: IVP; Site: right antecubital; jd3 16:35 Follow up: Response: No adverse reaction; Pain is decreased; RASS: Alert and Calm (0) jd3 15:36 Drug: Zofran (Ondansetron) 4 mg Route: IVP; Site: right antecubital; jd3 16:35 Follow up: Response: No adverse reaction jd3 15:36 Drug: Viscous Lidocaine Liquid (4 %) 5 ml Route: Mucous Membrane; jd3 16:35 Follow up: Response: No adverse reaction jd3 15:36 Drug: NS 0.9% 1000 ml Route: IV; Rate: 1 bolus; Site: right antecubital; jd3 16:35 Follow up: Response: No adverse reaction; IV Status: Completed infusion jd3 15:36 Drug: Insulin Regular Human 10 units {Co-Signature: vg1 (Aviva Isidro RN).} Route: jd3 IVP; Site: right antecubital; 16:35 Follow up: Response: No adverse reaction; Blood sugar is lowered jd3 22:52 Not Given (Unavailable in the ED, pt going to floor at this time.): nystatin dc2 Suspension [id number] units PO once; swish and swallow Disposition Summary: 09/07/21 16:32 Hospitalization Ordered Hospitalization Status: Observation sp3 Provider: Krystle Brandt sp3 Location: Telemetry/MedSurg (observation) sp3 Condition: Stable sp3 Problem: an acute exacerbation sp3 Symptoms: are unchanged sp3 Bed/Room Type: Standard sp3 Room Assignment: 222(09/07/21 20:44) mw Diagnosis - Dehydration sp3 - Hyperglycemia, unspecified sp3 Forms: - Medication Reconciliation Form sp3 - SBAR form sp3 Signatures: Dispatcher [employer] EDMS Makayla Raymond RN RN mw Janet Ledesma RN RN tw2 Fred Lopez RN RN jd3 Kobe Silverio PA PA ej Patel, Setul, MD MD sp3 Kelsey, Keturah NUNEZ dc2 Aviva Isidro RN vg1 Corrections: (The following items were deleted from the chart) 20:44 16:32 sp3 mw
--- NOTE | 2021-09-07 16:33 | ER ---
Nurse's Notes [facility] Name: Rashid Judge Age: 61 yrs Sex: Male : 1960 Arrival Date: 09/07/2021 Time: 14:05 Bed 6 Private MD: Diagnosis: Dehydration;Hyperglycemia, unspecified Presentation: 09/07 14:40 Note pt asleep in ER main lobby at this time. tw2 14:43 Note pt states "i got to try to go pee. i have prostrate problems". pt given a specimen tw2 cup at this time for urine collection. Onset of symptoms was September 07, 2021. 14:45 Chief complaint: Patient states: im a stage 4 prostrate cancer. i came in Wednesday to do tw2 my chemotherapy. i woke up this morning with the blisters all over my throat and mouth. and my legs are just shaking. i am feeling nauseous. i feel like i cant pee and i am having diarrhea. Coronavirus screen: At this time, the client does not indicate any symptoms associated with coronavirus-19. Ebola Screen: Patient denies travel to an Ebola-affected area in the 21 days before illness onset. Initial Sepsis Screen: Does the patient meet any 2 criteria? No. Patient's initial sepsis screen is negative. Does the patient have a suspected source of infection? No. Patient's initial sepsis screen is negative. Risk Assessment: Do you want to hurt yourself or someone else? Patient reports no desire to harm self or others. Note pt returned a specimen cup with approx 100 ml urine noted. 14:45 Method Of Arrival: Ambulatory tw2 14:45 Acuity: JULIETTE 2 tw2 Triage Assessment: 14:47 General: Appears uncomfortable, slender, Behavior is cooperative, appropriate for age. tw2 Pain: Complains of pain in throat. EENT: Reports pain when swallowing. GI: Reports diarrhea, nausea. Historical: - Allergies: 14:48 No Known Allergies; tw2 - Home Meds: 14:48 glipizide 5 mg Oral tr24 1 tab once daily [Active]; lisinopril 30 mg Oral tab 1 tab tw2 once daily [Active]; - PMHx: 14:48 PROSTATE CA; Hypertension; Diabetes - NIDDM; tw2 - Immunization history:: Client reports receiving the 2nd dose of the Covid vaccine. - Social history:: Smoking status: Patient reports the use of cigarette tobacco products, denies chronic smoking, but will smoke occasionally. Screenin:15 Abuse screen: Denies threats or abuse. Nutritional screening: No deficits noted. jd3 Tuberculosis screening: No symptoms or risk factors identified. Fall Risk Ambulatory Aid- None/Bed Rest/Nurse Assist (0 pts). Gait- Normal/Bed Rest/Wheelchair (0 pts) Mental Status- Oriented to own ability (0 pts). Total [place] Fall Scale indicates No Risk (0-24 pts). Assessment: 15:09 General: Appears in no apparent distress. uncomfortable, Behavior is calm, cooperative, jd3 appropriate for age. Pain: Complains of pain in abdomen Quality of pain is described as aching. Neuro: Level of Consciousness is awake, alert, obeys commands, Oriented to person, place, time, situation. Cardiovascular: Denies chest pain, Capillary refill < 3 seconds Patient's skin is warm and dry. Respiratory: Airway is patent Respiratory effort is even, unlabored, Respiratory pattern is regular, symmetrical. GI: Abdomen is flat, non-distended, Abd is soft and non tender Reports nausea, vomiting. : No signs and/or symptoms were reported regarding the genitourinary system. EENT: No signs and/or symptoms were reported regarding the EENT system. Derm: Skin is intact, Skin is dry, Skin is normal, Skin temperature is warm. Musculoskeletal: Circulation, motion, and sensation intact. Range of motion: intact in all extremities. 17:39 Reassessment: Patient and/or family updated on plan of care and expected duration. Pain jd3 level reassessed. Patient is alert, oriented x 3, equal unlabored respirations, skin warm/dry/pink. 18:42 Reassessment: Patient appears in no apparent distress at this time. Patient and/or jd3 family updated on plan of care and expected duration. Pain level reassessed. Patient is alert, oriented x 3, equal unlabored respirations, skin warm/dry/pink. awaiting admission. sandwich and chips with water given to pt. Patient states feeling better. Patient states symptoms have improved. 20:00 Reassessment: Pt lying in bed, asking for juice and or ice cream. Pt VSS, pt co pain to dc2 throat and mouth, state has mouth ulcers. Jason 20g in Left and Right AC flushed without difficulty. Call light within reach. Continue to monitor. 21:40 Reassessment: Attempt to call report, speak to Nadia Waters is in pt room at mi2 this time. Will give phone number to be able to call back for report. 22:06 Reassessment: Attempt to call report, speak to Rao, states the nurse is not available dc2 at the moment and " she said she will call you back ". 22:08 Reassessment: Lab orders in computer, speak to Kobe ( hospitalist ) to make sure these dc2 were for the am labs and not tonight. Vital Signs: 14:45 BP 140 / 115; Pulse 121; Resp 18; Temp 98.7(O); Pulse Ox 100% on R/A; Weight 63.5 kg tw2 (R); Height 5 ft. 6 in. (167.64 cm); Pain 9/10; 15:13 BP 144 / 96; Pulse 104; Resp 19 S; Pulse Ox 97% on R/A; jd3 17:38 Pulse 96; Resp 19 S; Pulse Ox 100% on R/A; jd3 18:41 BP 155 / 105; Pulse 95; Resp 19 S; Pulse Ox 99% on R/A; jd3 20:00 BP 135 / 78; Pulse 101; Resp 17; Pulse Ox 98% ; Pain 6/10; dc2 22:00 BP 141 / 86; Pulse 95; Resp 17; Pulse Ox 99% ; Pain 6/10; dc2 14:45 Body Mass Index 22.60 (63.50 kg, 167.64 cm) tw2 ED Course: 14:05 Patient arrived in ED. ds1 14:43 Arm band placed on. tw2 14:47 Triage completed. tw2 14:49 Aviva Isidro, RN is Primary Nurse. vg1 14:52 Katrin Hollingsworth MD is Attending Physician. sp3 15:15 Patient has correct armband on for positive identification. Bed in low position. Call jd3 light in reach. Side rails up X 1. Adult w/ patient. case monitor on. Pulse ox on. NIBP on. 15:16 Primary Nurse role handed off by Aviva Isidro, RN vg1 15:16 Fred Lopez, MAYRA is Primary Nurse. vg1 15:25 Inserted saline lock: 20 gauge in right antecubital area, using aseptic technique. dh4 Blood collected. 15:30 XRAY Chest (1 view) In Process Unspecified. EDMS 15:39 Inserted saline lock: 20 gauge in left antecubital area, using aseptic technique. dh4 16:32 Krystle Brandt MD is Hospitalizing Provider. sp3 19:21 Primary Nurse role handed off by Fred Lopez RN tt3 20:08 Keturah Cole RN is Primary Nurse. dc2 20:13 No provider procedures requiring assistance completed. IV Flushed right left dc2 antecubital. 21:37 IV is patent, dc2 Administered Medications: 15:35 Drug: Dilaudid (HYDROmorphone) 1 mg Route: IVP; Site: right antecubital; jd3 16:35 Follow up: Response: No adverse reaction; Pain is decreased; RASS: Alert and Calm (0) jd3 15:36 Drug: Zofran (Ondansetron) 4 mg Route: IVP; Site: right antecubital; jd3 16:35 Follow up: Response: No adverse reaction jd3 15:36 Drug: Viscous Lidocaine Liquid (4 %) 5 ml Route: Mucous Membrane; jd3 16:35 Follow up: Response: No adverse reaction jd3 15:36 Drug: NS 0.9% 1000 ml Route: IV; Rate: 1 bolus; Site: right antecubital; jd3 16:35 Follow up: Response: No adverse reaction; IV Status: Completed infusion jd3 15:36 Drug: Insulin Regular Human 10 units {Co-Signature: vg1 (Aviva Isidro RN).} Route: jd3 IVP; Site: right antecubital; 16:35 Follow up: Response: No adverse reaction; Blood sugar is lowered jd3 22:52 Not Given (Unavailable in the ED, pt going to floor at this time.): nystatin dc2 Suspension [id number] units PO once; swish and swallow Outcome: 16:32 Decision to Hospitalize by Provider. sp3 22:33 Admitted to Tele accompanied by tech, via wheelchair, room 222, with chart, Report dc2 called to Janee Weller RN 22:33 Condition: stable 22:52 Patient left the ED. dc2 Signatures: Dispatcher [facility] ds1 Janet Ledesma RN RN tw2 Fred Lopez RN RN jd3 Osvaldo Whitlock 4 Aviva Isidro RN RN vg1 Jak Kelly tt3 Katrin Hollingsworth MD MD sp3 Keturah Cole RN RN dc2 Aviva Isidro RN vg1 Corrections: (The following items were deleted from the chart) 14:49 14:45 Acuity: JULIETTE 3 tw2 tw2
[2021-09-07] MEDS ORDERED: D50W 25 GM/50 ML SYRINGE IV PRN (20:32)
[2021-09-07] MEDS ORDERED: ONDANSETRON 4 MG/2 ML VIAL IV PRN (20:32)
[2021-09-07] MEDS ORDERED: GLUCAGON 1 MG/VIAL IM PRN (20:32)
[2021-09-07] MEDS ORDERED: ACETAMINOPHEN 500 MG TAB PO PRN (20:32)
[2021-09-07] MEDS ORDERED: MORPHINE 2 MG/ML SYR IV PRN (20:32)
--- NOTE | 2021-09-07 20:50 | P.HP ---
Certification for Inpatient Patient admitted to: Observation With expected LOS: <2 Midnights Patient will require the following post-hospital care: None Practitioner: I am a practitioner with admitting privileges, knowledge of patient current condition, hospital course, and medical plan of care. Services: Services provided to patient in accordance with Admission requirements found in Title 42 Section 412.3 of the Code of Federal Regulations Patient History Date of Service: 09/07/21 Reason for admission: Hyperosmolar nonketotic syndrome/candidiasis History of Present Illness: Patient is a 61-year-old gentleman with a history of metastatic prostate cancer. Patient has metastasis to the bones. There also is a possible lung lesion. Patient has been getting chemotherapy. Patient had been doing well up until this past week. He was having pain whenever he had anything to eat. He has been thirsty and he is also been urinating but very little amount. Patient was feeling very weak and lightheaded and he was having tremors of his left leg. He got concerned along with his in a came into the emergency room. In the emergency room, patient was found to have hyperosmolar nonketotic syndrome. Patient also was found have oral pharyngeal and esophageal candidiasis. Patient will be admitted to the hospital for further evaluation. Allergies No Known Allergies Allergy (Verified 06/23/21 11:12) Home Medications: Amlodipine [Norvasc] 10 mg PO DAILY 06/23/21 Hydrocodone 5/APAP 325 [[place] 5/325] 1 tab PO Q8HP PRN 06/23/21 Lisinopril [Zestril] 40 mg PO DAILY 06/23/21 Metformin HCl [Glucophage] 500 mg PO BIDWM 06/23/21 Tamsulosin [Flomax] 0.4 mg PO BEDTIME 06/23/21 Tramadol HCl [Ultram] 50 mg PO BID 06/23/21 Trazodone HCl 50 mg PO BEDTIME 06/23/21 hydroCHLOROthiazide [Hydrochlorothiazide] 25 mg PO DAILY 06/23/21 - Past Medical/Surgical History -: Stage IV prostate cancer -: Type 2 diabetes -: Hypertension Past Surgical History: Patient denies surgical history - Family History Father Family History: Reviewed- Non-Contributory - Social History Smoking Status: Never smoker Alcohol use: No CD- Drugs: No Review of Systems 10-point ROS is otherwise unremarkable Physical Examination - Vital Signs Temperature: 98 F Blood Pressure: 100/60 Pulse: 80 Respirations: 18 Pulse Ox (%): 96 - Physical Exam General: Alert, In no apparent distress, Oriented x3 HEENT: Atraumatic, PERRLA, Mucous membr. moist/pink, Other (Thrush and plaques in the back of the throat), EOMI, Sclerae nonicteric Neck: Supple, 2+ carotid pulse no bruit, No LAD, Without JVD or thyroid abnormality Respiratory: Clear to auscultation bilaterally, Normal air movement Cardiovascular: Regular rate/rhythm, Normal S1 S2, No murmurs Gastrointestinal: Normal bowel sounds, Soft and benign, Non-distended, No tenderness Musculoskeletal: No clubbing, No swelling, No tenderness Integumentary: No rashes Neurological: Normal gait, Normal speech, Normal strength at 5/5 x4 extr, Normal tone, Sensation intact, Cranial nerves 3-12 intact, Normal affect Lymphatics: No axilla or inguinal lymphadenopathy - Studies Laboratory Data (last 24 hrs) 09/07/21 15:29: PT 11.4, INR 0.99 09/07/21 15:29: WBC 7.70 D, Hgb 12.9 L, Hct 39.6, Plt Count 266 09/07/21 15:29: Sodium 133 L, Potassium 4.5, BUN 17, Creatinine 1.06, Glucose 484 H*, Magnesium 2.5 H, Total Bilirubin 0.5, AST 21, ALT 32, Alkaline Phosphatase 1346 H Assessment & Plan - Problems (Diagnosis) (1) Type 2 diabetes mellitus with hyperosmolar nonketotic hyperglycemia Current Visit: Yes Status: Acute (2) Prostate cancer metastatic to bone Current Visit: Yes Status: Acute (3) Hypertension Current Visit: Yes Status: Acute (4) Candidiasis of mouth and esophagus Current Visit: Yes Status: Acute (5) Alkaline phosphatase elevation Current Visit: Yes Status: Acute - Plan 1. IV hydration 2. Long-acting insulin 3. Accu-Cheks AC and HS 4. Monitor electrolytes 5. Antifungal 6. Diabetic education 7. Pain control 8. GI and DVT prophylaxis Discharge Plan: Home Plan to discharge in: 24 Hours - Advance Directives Does patient have a Living Will: No Does patient have a Durable POA for Healthcare: No - Code Status/Comfort Care Code Status Assessed: Yes Code Status: Full Code Critical Care: No Time Spent Managing PTS Care (In Minutes): 40
[2021-09-07] MEDS ORDERED: INSULIN GLARGINE 100 UNITS/ML SQ SCH (21:00)
[2021-09-07] MEDS: INSULIN -REGULAR HUMAN 50 UNIT/0.5 ML ML SQ SCH (21:00)
[2021-09-07] MEDS ORDERED: FLUCONAZOLE 200mg IVPB 200 MG/100 ML BAG IV SCH (21:00)
[2021-09-07 23:17] VITALS: O2SAT 99
[2021-09-07] MEDS: NYSTATIN 500,000 UNIT/5 ML UDC PO SCH (23:54)
[2021-09-07] MEDS: NA CHLORIDE 0.9% 1,000 ML IV SCH (23:56)
[2021-09-08 00:34] VITALS: BMI 23.2
[2021-09-08 04:38] LABS: Basophils % 0.6 % (0-1.3); Hematocrit 33.1 % (39.6-49.0); Lymphocytes % 23.3 % (15.3-44.8); MPV 8.9 fL (7.6-11.3); RBC Red Blood Cell Count 3.82 M/uL (4.33-5.43)
[2021-09-08 05:08] LABS: ALT/SGPT 25 U/L (12-78); AST/SGOT 21 U/L (15-37); Albumin 2.6 g/dL (3.4-5.0); Alkaline Phosphatase 1069 U/L (45-117); BUN Blood Urea Nitrogen 12 mg/dL (7-18); Bicarbonate 25 mmol/L (21-32); Bilirubin Total 0.5 mg/dL (0.2-1.0); Glucose Level 292 mg/dL (74-106); Potassium 4.3 mmol/L (3.5-5.1); Protein, Total 6.2 g/dL (6.4-8.2); Sodium Level 139 mmol/L (136-145)
[2021-09-08] MEDS: NA CHLORIDE 0.9% 1,000 ML IV SCH (07:00)
[2021-09-08] MEDS ORDERED: MAGIC MOUTHWASH 180 ML BTL PO PRN (07:09)
[2021-09-08] MEDS ORDERED: TRAMADOL HCL 50 MG TAB PO PRN (07:13)
[2021-09-08] MEDS ORDERED: HYDROCODONE/APAP 5/325 MG TAB PO PRN (07:13)
[2021-09-08] MEDS ORDERED: METFORMIN HCL 500 MG TAB PO SCH (08:00)
--- NOTE | 2021-09-08 08:24 | P.DS ---
Admission Date: 09/07/21 Discharge Date: 09/08/21 Primary Care Provider: none; Oncology-Dr. Villanueva Disposition: ROUTINE DISCHARGE Discharge Condition: GOOD Reason for Admission: Hyperosmolar nonketotic syndrome/candidiasis Consultations: none Procedures: COVID: Negative CXR: COMPARISON: June 2021 FINDINGS: Mediastinal mass has markedly diminished in size. Mild left upper lobe opacities probably pneumonitis. Right lung appears clear. Heart is normal size. Sclerotic bony lesions are again demonstrated Medical Problem List: Diabetes mellitus type 2 with hyperosmolar nonketotic hyperglycemic state Oral candidiasis GERD Hypertension Stage IV prostate cancer Chronic pain Brief History of Present Illness: 61-year-old -Armenian male with history of metastatic prostate cancer, hypertension, diabetes mellitus type 2. Patient has been getting chemotherapy. Patient recently diagnosed with diabetes. Patient has been taking Metformin. Patient has noticed increased thirst and increased polyuria. Patient was evaluated in the emergency room. Patient found to have hyperosmolar nonketotic syndrome with hyperglycemia. Patient also found to have oral candidiasis. Patient was admitted for observation. Hospital Course: Patient presented with polydipsia and polyuria. Patient with underlying diabetes mellitus type 2. Patient found to have hyperosmolar nonketotic state with hyperglycemia. Blood sugars were above 500. Hemoglobin A1c 12.0. Patient had been taking Glucophage. The patient was admitted for observation. Patient received IV fluids with insulin therapy. Blood sugars improved. Blood sugars now in the 200 range. At discharge dietary will address diabetic education on diet. Patient will continue with [employer] diet. At discharge patient may continue with Metformin 500 mg 1 pill twice daily. New medication includes Lantus. At discharge patient will continue with Lantus 20 units subcu at bedtime. Recommend to monitor blood sugars at least twice daily. Recommend to maintain blood sugar less than 140 fasting and less than 200 after meals. If blood sugar remains above 200 he may increase Lantus by 1 to 2 units for better diabetic control. Recommend to establish care with a local physician to continue to monitor his diabetes. Recommend to recheck hemoglobin A1c every 3 months to monitor his progress. Goal hemoglobin A1c should be less than 7. Patient should keep a record of his blood sugars and follow-up with his PCP to further address his diabetes. Recommend follow-up with PCP within 1 week with recheck labCMP at that time to monitor his progress. Patient with stage IV prostate cancer. Patient is getting chemotherapy with oncology. Recommend to also establish care and follow-up with urology as an outpatient. A list of urology will be provided. At discharge patient may continue with his current medication of Flomax 0.4 mg daily. Patient will continue with oncology to further address his stage IV prostate cancer. Patient was found to have oral thrush. This is likely related to his uncontrolled diabetes and recent chemotherapy. At discharge the patient will continue with nystatin 500,000 units swish and swallow 3 times a day for 7 days. Patient may have underlying GERD. At discharge patient will continue with Pepcid 20 mg 1 pill twice daily. Patient with hypertension. At discharge medications have been adjusted. Hydrochlorothiazide has been discontinued. At discharge patient will continue with Norvasc 10 mg daily and lisinopril 40 mg daily. Recommend to maintain blood pressure less than 130/80. Further adjustment can be done by his PCP. Patient with chronic pain. At discharge patient will continue with [place] 5/325 mg 1 pill 3 times a day for moderate pain and tramadol 50 mg 1 pill twice daily as needed for mild pain. Patient also takes trazodone 50 mg at bedtime. Hold with increase sedation. Vital Signs/Physical Exam: Temp Pulse Resp BP Pulse Ox 97.8 F 96 H 18 155/86 H 98 09/08/21 04:00 09/08/21 04:00 09/08/21 04:00 09/08/21 04:00 09/08/21 04:00 General: Alert, In no apparent distress, Oriented x3, Cooperative HEENT: Atraumatic, Other (Mild oral thrush noted) Neck: Supple Respiratory: Clear to auscultation bilaterally Cardiovascular: Normal pulses, Regular rate/rhythm Gastrointestinal: Normal bowel sounds Musculoskeletal: No erythema, No tenderness, No warmth Integumentary: No tenderness/swelling Neurological: Normal speech, Normal strength at 5/5 x4 extr, Normal tone Laboratory Data at Discharge: WBC 4.50 K/uL (4.3-10.9) D 09/08/21 04:01 Hgb 11.2 g/dL (13.6-17.9) L 09/08/21 04:01 Hct 33.1 % (39.6-49.0) L D 09/08/21 04:01 Plt Count 227 K/uL (152-406) 09/08/21 04:01 PT 11.4 SECONDS (9.5-12.5) 09/07/21 15:29 INR 0.99 09/07/21 15:29 Sodium 139 mmol/L (136-145) 09/08/21 04:01 Potassium 4.3 mmol/L (3.5-5.1) 09/08/21 04:01 BUN 12 mg/dL (7-18) 09/08/21 04:01 Creatinine 0.63 mg/dL (0.55-1.3) 09/08/21 04:01 Glucose 292 mg/dL (74-106) H 09/08/21 04:01 Magnesium 2.5 mg/dL (1.8-2.4) H 09/07/21 15:29 Total Bilirubin 0.5 mg/dL (0.2-1.0) 09/08/21 04:01 AST 21 U/L (15-37) 09/08/21 04:01 ALT 25 U/L (12-78) 09/08/21 04:01 Alkaline Phosphatase 1069 U/L (45-117) H 09/08/21 04:01 Home Medications: Amlodipine [Norvasc*] 10 mg PO DAILY 06/23/21 Hydrocodone 5/APAP 325 [[place] 5/325*] 1 tab PO Q8HP PRN 06/23/21 Lisinopril [Zestril] 40 mg PO DAILY 06/23/21 Metformin HCl [Glucophage*] 500 mg PO BIDWM 06/23/21 Tamsulosin [Flomax*] 0.4 mg PO BEDTIME 06/23/21 Tramadol HCl [Ultram] 50 mg PO BID 06/23/21 Trazodone HCl 50 mg PO BEDTIME 06/23/21 Famotidine [Pepcid] 20 mg PO BID #60 tab 09/08/21 Insulin Glargine Human [Lantus*] 20 units SQ BEDTIME #1 vial 09/08/21 Nystatin 5 ml PO TID #1 bottle 09/08/21 New Medications: Insulin Glargine Human [Lantus*] 20 units SQ BEDTIME #1 vial Nystatin 5 ml PO TID #1 bottle Famotidine [Pepcid] 20 mg PO BID #60 tab Physician Discharge Instructions: Patient presented with polydipsia and polyuria. Patient with underlying diabetes mellitus type 2. Patient found to have hyperosmolar nonketotic state with hyperglycemia. Blood sugars were above 500. Hemoglobin A1c 12.0. Patient had been taking Glucophage. The patient was admitted for observation. Patient received IV fluids with insulin therapy. Blood sugars improved. Blood sugars now in the 200 range. At discharge dietary will address diabetic education on diet. Patient will continue with [employer] diet. At discharge patient may continue with Metformin 500 mg 1 pill twice daily. New medication includes Lantus. At discharge patient will continue with Lantus 20 units subcu at bedtime. Recommend to monitor blood sugars at least twice daily. Recommend to maintain blood sugar less than 140 fasting and less than 200 after meals. If blood sugar remains above 200 he may increase Lantus by 1 to 2 units for better diabetic control. Recommend to establish care with a local physician to continue to monitor his diabetes. Recommend to recheck hemoglobin A1c every 3 months to monitor his progress. Goal hemoglobin A1c should be less than 7. Patient should keep a record of his blood sugars and follow-up with his PCP to further address his diabetes. Recommend follow-up with PCP within 1 week with recheck labCMP at that time to monitor his progress. Patient with stage IV prostate cancer. Patient is getting chemotherapy with oncology. Recommend to also establish care and follow-up with urology as an outpatient. A list of urology will be provided. At discharge patient may continue with his current medication of Flomax 0.4 mg daily. Patient will continue with oncology to further address his stage IV prostate cancer. Patient was found to have oral thrush. This is likely related to his uncontrolled diabetes and recent chemotherapy. At discharge the patient will continue with nystatin 500,000 units swish and swallow 3 times a day for 7 days. Patient may have underlying GERD. At discharge patient will continue with Pepcid 20 mg 1 pill twice daily. Patient with hypertension. At discharge medications have been adjusted. Hydrochlorothiazide has been discontinued. At discharge patient will continue with Norvasc 10 mg daily and lisinopril 40 mg daily. Recommend to maintain blood pressure less than 130/80. Further adjustment can be done by his PCP. Patient with chronic pain. At discharge patient will continue with [place] 5/325 mg 1 pill 3 times a day for moderate pain and tramadol 50 mg 1 pill twice daily as needed for mild pain. Patient also takes trazodone 50 mg at bedtime. Hold with increase sedation. Diet: ADA Activity: Ad melinda Followup: [email or web address] [Primary Care Provider] - Time spent managing pt's care (in minutes): 55
[2021-09-08 08:32] VITALS: BP 120/75; TEMP 97.2
[2021-09-08] MEDS ORDERED: AMLODIPINE 10 MG TAB PO SCH (09:00)
[2021-09-08] MEDS ORDERED: lisinopriL 20 MG TAB PO SCH (09:00)
[2021-09-08] MEDS: NYSTATIN 500,000 UNIT/5 ML UDC PO SCH (09:08)
[2021-09-08] MEDS: INSULIN -REGULAR HUMAN 50 UNIT/0.5 ML ML SQ SCH (09:10)
--- NOTE | 2021-09-08 18:26 | EKG ---
Test Date: 2021-09-07 Test Time: 15:44:41 Collaborating Supervising Physician: KALEE MEASUREMENT RESULTS: Intervals: Rate: 107 AL: 140 QRSD: 84 QT: 352 QTc: 469 Roundup: P: 66 AL: 140 QRS: 69 T: 70 INTERPRETIVE STATEMENTS: Sinus tachycardia Septal infarct, age undetermined Abnormal ECG No previous ECG available for comparison Electronically Signed On 09-08-21 18:23:39 DIAMOND EXPERT by Krystian Jin
[2021-09-08] MEDS ORDERED: TAMSULOSIN 0.4 MG SR CAP PO SCH (21:00)
[2021-09-08] MEDS ORDERED: TRAZODONE 50 MG TABLET PO SCH (21:00)
--- OUTSIDE RECORDS SUMMARY | 2021-09-13 15:37 | XMS REPORT | Continuity of Care Document ---
:[address] [facility] t Address [address] [place] [address] Care Team Providers Name Role Phone Doron Mima ERICKSON Primary Care Physician Doctor Unassigned, [place] Attending Clinician Unavailable SALES Attending Clinician Unavailable Payers Payer Name Policy Type Policy Number Effective Date Expiration Date S ource Problems Condition Condition Condition Status Onset Resolution Last Treating Co mments Source Name Details Category Date Date Treatment Clinician Date Lung mass Lung mass Disease Active Uni vers 04-28 ity of 00:00: [place] 00 [facility] Cigarette Cigarette Disease Active Uni vers smoker smoker 04-28 ity of 00:00: [place] 00 [facility] Type 2 Type 2 Disease Active Univers diabetes diabetes 04-28 ity of mellitus mellitus 00:00: [place] without without 00 Medical complicati complicati Br anch on, on, without without long-term long-term current current use of use of insulin insulin Essential Essential Disease Active Uni vers hypertensi hypertensi 04-28 it y of on on 00:00: [place] 00 [facility] Coronary Coronary Disease Active Unive rs artery artery 6-28 ity of calcific[place] calc[place] 00 [facility] Chronic Chronic Disease Active Univers midline midline 04-28 ity of low back low back 00:00: [place] pain pain 00 Medical without without Branch sciatica sciatica Metastatic Metastatic Disease Active U nivers cancer cancer 04-28 ity of 00:00: [place] 00 Medical Branch Elevated Elevated Disease Active Unive rs brain brain 04-28 ity of natriureti natriureti [place] c peptide c peptide 00 Medi alexandra (BNP) (BNP) Branch level level Elevated Elevated Disease Active Unive rs troponin troponin 04-26 ity of 00:00: 00 Medical Branch Allergies, Adverse Reactions, Alerts Allergy Allergy Status Severity Reaction(s) Onset Inactive Treating Comm ents Source Name Type Date Date Clinician NO KNOWN Drug Active Univers ALLERGIE Class ity of [facility] Social History Social Habit Start Date Stop Date Quantity Comments Source Tobacco use and 2021-04-26 2021-04-26 Never used [facility] exposure 00:00:00 00:00:00 [facility] Sex Assigned At [birth year] [facility] 00:00:00 00:00:00 [facility] Smoking Status Start Date Stop Date Source Current every day smoker 2021-04-26 00:00:00 Uni versity [facility] [place] [facility] Medications Ordered Filled Start Stop Current Ordering Indication Dosage Frequency Signature Comments Components Source Medication Medication Date Date Medication? Clinician (SIG) Name Name traMADoL 50 Yes [id number] 50mg Take 1-2 Un jaziel mg tablet 6-30 tablets by ity of 00:00: mouth [place] 00 every 6 Medical (six) Branch hours as needed for Pain (scale 7-10). Indication s: acute pain acetaminoph Yes [id number] 650mg Take 2 Univers en 325 mg 6-29 tablets by ity of tablet 00:00: mouth [place] 00 every 6 Medical (six) Branch hours as needed for Pain (scale 1-3). ciprofloxac Yes [id number] 500mg Take 1 Univers in HCl 6-29 tablet by ity of (CIPRO) 500 00:00: mouth [place] mg tablet 00 SEE-INSTRU Medi alexandra CTIONS. Branch Take 1 PO BID on Wednesday05/04/2021, Wednesday05/05/2021, Wednesday05/06/2021 Procedures Procedure Date / Time Performing Clinician Source Performed AUTHORIZATION FOR 2021-07-08 05:01:00 Doctor Unassboris, No [facility] RELEASE OF PHI Name Medical Branch Encounters Start End Encounter Admission Attending Care Care Encounter Source Date/Time Date/Time Type Type Clinicians Facility Department ID 2021-09-11 2021-09-11 ambulatory [facility] [id number] [facility] 2021-07-08 2021-07-08 Orders Doctor BUDDY [id number] Univers 00:00:00 00:00:00 Only Unassigned, TEJA [id number] ity of [place] [facility] [id number] [place] as [phone] [address] 2021-06-17 2021-06-17 Outpatient [facility] [id number] [facility] 2021-06-12 2021-06-12 Out[facility] [id number] [facility] 2021-05-29 2021-05-29 [facility] [id number] [facility] 2021-05-22 2021-05-22 [facility] [id number] [facility] 2021-05-15 2021-05-15 [facility] [id number] [facility] 2021-05-14 2021-05-14 Out[facility] [id number] [facility] 2021-05-07 2021-05-07 Out[facility] [id number] [facility] 2021-04-26 2021-04-26 Emergency X [facility] [id number] [address] [facility] 07:59:00 07:59:00 JASON paul [facility] [place] [facility] Results This patient has no known results.
== END 2021-09-08 10:51 | disposition home or self-care (01) ==
LOC: ER 14:03 → ERHOLD 20:33 → 2ND 21:41 → ERHOLD 21:42 → 2ND 21:53
PROVIDERS: ADMIT Hospitalist; ATTEND Hospitalist
DX: E11.00 Type 2 diabetes mellitus with hyperosmolarity without nonketotic hyperglycemic-hyperosmolar coma (NKHHC) (principal); B37.0 Candidal stomatitis; K21.9 Gastro-esophageal reflux disease without esophagitis; I10 Essential (primary) hypertension; C61 Malignant neoplasm of prostate; G89.29 Other chronic pain; Z20.822 Contact with and (suspected) exposure to COVID-19
CPT/HCPCS: 96361; 93005; 85025 ×2; 80048; 36415; 83735; 85610; 82947 ×5; 80076; 81003; 83036; 84484; 80053; 83880; 71045; 96375; 96374; 99285; U0003; J1815; J1170; J7030 ×2; J2405; J1450; G0378 ×3